=== PATIENT | female | born 1960 | race Caucasian/White ===

== ENCOUNTER 2019-06-16 09:44 | Day surgery (SDC) | payer OTHER ==
[~2019-06-16 09:44] MED LIST: Lactated Ringers 1,000 ML IV SCH; Midazolam 1 MG/ML 2 ML SDV ONE; Propofol 200 MG/20 ML SDV ONE; Sodium Chloride 0.9% 10 ML Syringe FLUSH PRN
--- NOTE | 2019-06-16 11:12 | PCM.HPR ---
H & P Addendum review - H & P Addendum Review Date of Original H & P: 06/02/19 Date Reviewed: 06/16/19 Time Reviewed: 11:11 Patient was Examined: No Changes
[2019-06-16] MEDS ORDERED: Midazolam 1 MG/ML 2 ML SDV ONE (11:18)
[2019-06-16] MEDS ORDERED: Propofol 200 MG/20 ML SDV ONE (11:18)
--- NOTE | 2019-06-16 11:34 | PCM.OPNOTE ---
- General Post-Op/Procedure Note Date of Surgery/Procedure: 06/16/19 Operative Procedure(s): EGD Findings: Normal Pre Op Diagnosis: Dysphasia/GERD Post-Op Diagnosis: Same Anesthesia Technique: MAC Primary Surgeon: Nas Phan Anesthesia Provider: Bonnie Zaidi Complications: None Condition: Good
--- NOTE | 2019-06-16 12:30 | PCM.OPNOTE ---
- General Post-Op/Procedure Note Date of Surgery/Procedure: 06/16/19 Operative Procedure(s): Colonoscopy with polypectomy Findings: Rectal polyp Pre Op Diagnosis: Pos Cologuard Post-Op Diagnosis: Same Anesthesia Technique: NASREEN Primary Surgeon: Nas Phan Anesthesia Provider: Bonnie Zaidi Complications: None Condition: Good
--- NOTE | 2019-06-16 13:31 | OR ---
Date of Procedure: 06/16/2019 PREOPERATIVE DIAGNOSIS: Gastroesophageal reflux disease with dysphagia. POSTOPERATIVE DIAGNOSIS: Normal EGD. PROCEDURE: EGD. ANESTHESIA: IV sedation. DESCRIPTION OF PROCEDURE: The patient was brought to the procedure room where she was placed on her left side and IV sedation administered. Oral bite block was placed and the upper endoscope advanced into the esophagus under direct vision without difficulty. Vocal cords were viewed and were normal. The scope was advanced through the esophagus to the third portion of the duodenum. Duodenum and pylorus were normal. Antrum and body of the stomach were normal. Retroflexion reveals a normal-appearing fundus. There was no hiatal hernia, strictures, inflammation, or other abnormalities. Air was removed and the scope withdrawn through the entire esophagus, which appears normal. The vocal cords again were normal. There are no abnormalities noted that would account for her dysphagia. There was no evidence of esophagitis. The patient tolerated the procedure well and returned to recovery in stable condition. MODSamir VANCE MD /[id number]
[2019-06-16 15:37] VITALS: BP 116/73; PULSE 57
== END 2019-06-16 13:08 | disposition home or self-care (01) ==
LOC: LL.SDS 09:44
PROVIDERS: ATTEND Surgery
DX: K21.9 Gastro-esophageal reflux disease without esophagitis (principal); K44.9 Diaphragmatic hernia without obstruction or gangrene; I10 Essential (primary) hypertension; R53.83 Other fatigue; N32.81 Overactive bladder; E55.9 Vitamin D deficiency, unspecified; F33.0 Major depressive disorder, recurrent, mild; G47.33 Obstructive sleep apnea (adult) (pediatric); Z79.899 Other long term (current) drug therapy; Z88.8 Allergy status to other drugs, medicaments and biological substances; Z91.040 Latex allergy status; Z90.49 Acquired absence of other specified parts of digestive tract; Z98.890 Other specified postprocedural states; Z87.891 Personal history of nicotine dependence; Z99.89 Dependence on other enabling machines and devices
CPT/HCPCS: J2250; J2704; J7120

== ENCOUNTER 2024-04-19 12:41 | Emergency (ER) | payer BC ==
[2024-04-19 13:08] LABS: BASOPHILS ABSOLUTE AUTO 0.01 K/uL (0.00-0.20); BASOPHILS PERCENT AUTO 0.2 % (0.0-2.0); EOSINOPHILS ABSOLUTE AUTO 0.02 K/uL (0.00-0.50); EOSINOPHILS PERCENT AUTO 0.4 % (0.0-5.0); HEMATOCRIT 45.1 % (34.0-46.0); HEMOGLOBIN 15.9 g/dL (11.7-15.5); LYMPHOCYTES ABSOLUTE AUTO 1.57 K/uL (0.50-3.50); LYMPHOCYTES PERCENT AUTO 33.3 % (10.0-50.0); MEAN CORPUSCULAR HEMOGLOBIN 31.3 pg (28.2-33.3); MEAN CORPUSCULAR HGB CONC 35.3 g/dL (31.7-36.0); MEAN CORPUSCULAR VOLUME 88.8 fL (84.0-98.0); MONOCYTES ABSOLUTE AUTO 0.25 K/uL (0.00-1.00); MONOCYTES PERCENT AUTO 5.3 % (2.0-14.0); NEUTROPHILS ABSOLUTE AUTO 2.87 K/uL (1.40-7.00); NEUTROPHILS PERCENT AUTO 60.8 % (45.0-80.0); PLATELET COUNT,PLT 258 K/uL (150-350); RED BLOOD CELL COUNT 5.08 M/uL (3.77-5.09); RED CELL DISTRIBUTION WIDTH 11.7 % (11.2-14.1); WHITE BLOOD CELL COUNT,WBC 4.7 K/uL (4.0-10.2)
[2024-04-19] MEDS: Lactated Ringers 1,000 ML IV ONE ×2 (13:20→14:09)
[2024-04-19 13:24] LABS: PROTHROMBIN TIME 9.8 SEC (9.0-11.1)
[2024-04-19] MEDS: Ondansetron 4 MG/2 ML SDV IVPUSH PRN (14:02)
[2024-04-19 14:46] LABS: ANION GAP 12.5 meq/L (7-15); BLOOD UREA NITROGEN,BUN 14 mg/dL (7-18); CALCIUM 10.4 mg/dL (8.5-10.1); CARBON DIOXIDE,CO2 27.5 mmol/L (21.0-32.0); CHLORIDE,CL 99 mmol/L (98-107); CREATININE 0.85 mg/dL (0.51-1.17); GLUCOSE RANDOM 119 mg/dL (70-99); MAGNESIUM 2.2 mg/dL (1.8-2.4); POTASSIUM,K 4.1 mmol/L (3.5-5.1); PRO B-TYPE NATRIUR PEPT,BNPPRO 12 pg/mL (0-125); SODIUM,NA 139 mmol/L (136-145)
[2024-04-19 14:47] LABS: ESTIMATED GFR 76 mL/min (>=60)
[2024-04-19] MEDS: Ketorolac 15 MG/ML SDV IVPUSH ONE (14:55)
[2024-04-19] MEDS: Sodium Chloride 0.9% 10 ML Syringe FLUSH PRN (15:22)
[2024-04-19] MEDS: Pantoprazole 40 MG Vial IVPUSH ONE (15:22)
== END 2024-04-19 16:08 | disposition home or self-care (01) ==
LOC: LL.ED 12:41
DX: J10.1 Influenza due to other identified influenza virus with other respiratory manifestations (principal); E86.0 Dehydration; I10 Essential (primary) hypertension; E78.00 Pure hypercholesterolemia, unspecified; Z91.040 Latex allergy status; Z79.899 Other long term (current) drug therapy; Z90.49 Acquired absence of other specified parts of digestive tract
CPT/HCPCS: 36415; 71046; 80048; 83735; 83880; 84484; 85025; 85610; 87428-QW; 93005; 93010; 96361; 96374; 96375; 99284; 99285-25; J1885; J2405; J2470; J7120